=== PATIENT | female | born 1960 | race Caucasian/White ===

== ENCOUNTER → 2017-09-20 09:32 | Outpatient (CLI) | payer OTHER, SELFPAY ==
--- NOTE | 2017-09-20 09:39 | XR_ITS ---
XR shoulder RT min 2V HISTORY: ITS.REASON: right shoulder pain ORDERING PHYSICIAN: Emanuel Wolfe MD PATIENT AGE: 56 years TECHNIQUE: Supraspinatus, Grashey, and axillary views are obtained FINDINGS: No fracture or dislocation. No lytic or blastic change. There is normal mineralization. The joint spaces are well-preserved. No significant degenerative/arthritic changes. No erosive changes evident. No significant subacromial stenosis IMPRESSION: Negative, no acute finding
== END ==
PROVIDERS: PCP Family Medicine; Visit Provider Orthopaedic Surgery
DX: M25.511 Pain in right shoulder (principal)
CPT/HCPCS: 73030

== ENCOUNTER 2018-02-25 15:01 | Outpatient (RCR) | payer OTHER, SELFPAY | END 2018-02-25 15:02 | disposition home or self-care (01) | LOC: PT 15:01 | PROVIDERS: Visit Provider Orthopaedic Surgery | DX: S93.402A Sprain of unspecified ligament of left ankle, initial encounter (principal); M85.662 Other cyst of bone, left lower leg | CPT/HCPCS: 97760 ==

== ENCOUNTER → 2018-02-26 10:42 | Outpatient (CLI) | payer OTHER, SELFPAY ==
--- NOTE | 2018-02-26 10:47 | XR_ITS ---
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 There is no soft tissue swelling laterally has improved. No acute fracture evident. IMPRESSION: Stable benign-appearing cystic lesion of the distal tibia
== END ==
PROVIDERS: PCP Family Medicine; Visit Provider Orthopaedic Surgery
DX: M85.662 Other cyst of bone, left lower leg (principal)
CPT/HCPCS: 73610

== ENCOUNTER → 2018-03-19 10:44 | Outpatient (CLI) | payer OTHER, SELFPAY ==
--- NOTE | 2018-03-19 10:46 | MR_ITS ---
MR shoulder RT wo con HISTORY: Right shoulder pain with clicking ITS.REASON: evaluate right rotator cuff tear ORDERING PHYSICIAN: Emanuel Wolfe MD PATIENT AGE: 57 years Comparison: 09/20/2017 TECHNIQUE: Standard multiplanar multiecho sequences are performed without contrast. FINDINGS: There are hypertrophic changes of the acromioclavicular joint. There is some hypertrophy along the undersurface of the acromium as well with mild subacromial stenosis at 5 mm. There is thickening of the supraspinatus and infraspinatus tendons consistent with tendinopathy/tendinosis. No definite tendon tear apparentk. The subscapularis and teres minor tendons appear intact. No obvious labral tear. No fracture or dislocation. Bicipital tendon is in place. There is a small amount fluid within the bicipital tendon sheath. IMPRESSION: 1. No evidence of rotator cuff tear. 2. 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 3. Fluid in the bicipital tendon sheath suggesting tendinitis
== END ==
PROVIDERS: PCP Family Medicine; Visit Provider Orthopaedic Surgery
DX: M25.511 Pain in right shoulder (principal); M67.911 Unspecified disorder of synovium and tendon, right shoulder; M75.21 Bicipital tendinitis, right shoulder; S49.90XA Unspecified injury of shoulder and upper arm, unspecified arm, initial encounter
CPT/HCPCS: 73221

== ENCOUNTER 2019-10-27 10:07 | Outpatient (RCR) | payer OTHER, SELFPAY | END 2019-10-27 10:10 | disposition home or self-care (01) | LOC: PT 10:07 | PROVIDERS: PCP Family Medicine | DX: S32.04 Fracture of fourth lumbar vertebra (principal) | CPT/HCPCS: 97163 ==

== ENCOUNTER 2020-04-30 16:30 | Outpatient (RCR) | payer OTHER, SELFPAY | END 2020-04-30 16:35 | disposition home or self-care (01) | LOC: PT 16:30 | DX: M54.5 Low back pain; M43.26 Fusion of spine, lumbar region | CPT/HCPCS: 97010; 97014; 97033; 97035; 97110; 97140; 97163; 97164; 97530; G0283 ==

== ENCOUNTER 2020-06-07 09:30 | Outpatient (RCR) | payer OTHER, SELFPAY | END 2020-12-22 14:44 | disposition home or self-care (01) | LOC: PT 09:30 | PROVIDERS: PCP Family Medicine; Visit Provider Orthopaedic Surgery | DX: M25.562 Pain in left knee; M17.12 Unilateral primary osteoarthritis, left knee | CPT/HCPCS: 97010; 97014; 97033; 97035; 97110; 97163; 97530; G0283 ==

== ENCOUNTER 2023-03-21 14:00 | Outpatient (RCR) | payer MEDICARE, OTHER, SELFPAY | END 2023-03-21 14:05 | disposition home or self-care (01) | LOC: OT 14:00 | PROVIDERS: PCP Family Medicine; Visit Provider Orthopaedic Surgery | DX: M75.21 Bicipital tendinitis, right shoulder (principal) | CPT/HCPCS: 97010; 97014; 97016; 97035; 97140; 97165; 97530; G0283 ==

== ENCOUNTER 2024-10-09 20:10 | Emergency (ER) | payer MEDICARE, SELFPAY ==
[2024-10-09 20:17] VITALS: BP 145/78; PULSE 102; RESP 16; TEMP 36.8; O2SAT 98; BMI 37.9
--- NOTE | 2024-10-09 20:33 | CT_ITS ---
PROCEDURE INFORMATION: Exam: CT Right Lower Extremity Without Contrast, Knee Exam date and time: 10/09/2024 8:41 PM Age: 63 years old Clinical indication: Injury or trauma; Other: Twisted knee TECHNIQUE: Imaging protocol: CT of the right lower extremity without contrast was performed. Exam focused on the knee. Radiation optimization: All CT scans at this facility use at least one of these dose optimization techniques: automated exposure control; mA and/or kV adjustment per patient size (includes targeted exams where dose is matched to clinical indication); or iterative reconstruction. COMPARISON: No relevant prior studies available. FINDINGS: Bones/joints: No evidence of fat density within the joint space. Lucent lesion in the proximal tibia with associated central calcifications. Three compartment joint osteophyte formation. Joint space calcium density at lateral compartment is probably a small osteochondral body Soft tissues: Nor large joint effusion. IMPRESSION: 1. Large joint effusion 2. No visible acute fracture 3. Three compartment osteoarthritis 4. Consider MRI for further characterization.
--- NOTE | 2024-10-09 20:33 | ED_ITS ---
<Statement entered by George Yates MD - 10/10/24 00:19> I was consulted by the VIVEK, and we discussed the complexity of problems being addressed. I approved the treatment and management plan for this patient's care in the emergency department, thus performing a substantial portion of the medical decision making. ABIs within normal limits, low concern for tibiofemoral dislocation or vascular injury. I reviewed the CT which demonstrates no fracture or dislocation. Possible ligamentous injury, she will follow-up outpatient and in a knee immobilizer. She is instructed to range her knee throughout the day, wear the knee immobilizer only when she is attempting to ambulate. George Yates MD Discharge Plan Disposition Patient Disposition: Home, Self-Care Condition: Fair Referrals Follow up/Referrals: Shania Rodriguez APRN [Primary Care Provider] - See instructions Sanya Aponte DO [Staff Physician] - See instructions Activity Restrictions/Add. Instructions Additional Instructions/Restrictions: Please wear your knee immobilizer and crutches for comfort. I recommend taking an aspirin a day until you see orthopedics. I have referred you to orthopedics please call in the morning to make your appointment. If you have any new continued or worsening signs or symptoms follow-up with your PCP return to the ER as needed. Clinical Impressions Clinical Impression: Effusion of knee joint right Injury of knee, right Qualifiers: Encounter type: initial encounter Qualified Code(s): S89.91XA - Unspecified injury of right lower leg, initial encounter Print Language Print Language: [place] Discharge ED Provider: George Yates General Adult HPI General Chief complaint: Extremity Injury, Lower Stated complaint: Right knee pain Time Seen by Provider: 10/09/24 20:17 Mode of Arrival: Ambulatory Source of Information: Patient Description of Symptoms (Recalled from ER Triage Doc. by RN): Patient was standing folding laundry when right knee gave out 1-2 hours ago. Patient difficulty amublating. History of Present Illness HPI narrative: Patient presents for right knee injury. Patient was sitting folding laundry and attempted to stand up and her knee buckled. She had a sharp pain and felt something pop . She has had difficulty bearing weight and bending her knee. She denies any numbness tingling loss of motor or sensory however. She did not fall or suffer any injury Related Data Allergies Allergy/AdvReac Type Severity Reaction Status Date / Time No Known Allergies Allergy Verified 03/29/20 13:05 [facility] Disclaimer: The information contained in this section may have been updated after the patient was seen, as this information can be updated by other users. Social History (System 03/29/20 @ 13:05 by Natalie Stroud) Smoking Status: Never smoker alcohol intake: never current occupational status: retired Travel in the last 8 weeks?: None Other Medical History Have you received the Flu Vaccine for this season: No ROS Obtained: Yes Systems reviewed as appropriate & no additional complaints except as documented Physical Exam General General appearance: alert and in no apparent distress Respiratory Respiratory exam: Present normal lung sounds bilaterally Cardiovascular Cardiovascular exam: Present regular rate and +S2 Neurological Exam Neurological exam: Present alert and oriented X3 Medical Decision Making Medical Records Screening: Per USPSTF and CDC recommendations, given the prevalence of disease in our region, it is our hospital?s policy to screen for HIV and viral Hepatitis for all patients aged 18 and over and those with ongoing risk factors. Lucien Inquiry Pt receiving controlled substance: No Vital Signs: 10/09/24 20:17 10/09/24 20:51 Temperature 98.2 F Temperature Source Tympanic Pulse Rate [Dorsalis Pedis] 82 Pulse Rate [Right] 102 H Respiratory Rate 16 Blood Pressure [Right Arm] 145/78 H Blood Pressure Mean [Right Arm] 100 Blood Pressure Source [Right Arm] Automatic Cuff Blood Pressure Position [Right Arm] Sitting 02 Sat by Pulse Oximetry 98 Orders (Tests/Meds): ED MEDICATIONS Discontinued Medications Generic Name Dose Route Start Last Admin Trade Name Freq PRN Reason Stop Dose Admin Acetaminophen 1,000 mg 10/09/24 20:33 10/09/24 20:49 Acetaminophen 500mg Tab PO 10/09/24 20:34 1,000 mg ONCE ONE Administration Oxycodone HCl 5 mg 10/09/24 20:33 10/09/24 20:49 Oxycodone 5mg Immediate Release Tablet PO 10/09/24 20:34 5 mg ONCE ONE Administration ORDERS Category Date Time Status CT knee RT wo con Stat Cat Scan 10/09/24 20:33 Completed Medical Decision Narrative: In summary patient is a 63-year-old female who presents to the emergency department for evaluation of right knee injury. Patient is normotensive the blood pressure 145/78 pulse 102 sinus tachycardia bedside monitor breathing 16 times a minute satting at 98% on room air upon arrival, afebrile at 90.2. Physical exam is remarkable for tenderness to palpation all about the right knee but there is no palpable bony deformity. Range of motion testing not attempted due to the patient's discomfort. She is neurovascular tact distally with good PT DP.. Differential diagnosis includes subluxation versus fracture versus ligament or cartilage injury etc. Initial workup will be conducted with CT scan Noncon of the right knee. Initial interventions include Tylenol and oxycodone patient's already taken ibuprofen. Initial workup reviewed by me and patient has a large joint effusion along with tricompartment osteoarthritis but no other acute abnormality.. Upon repeat evaluation patient still having difficulty bearing weight. Given this I will place the patient in a knee immobilizer tell her to take an aspirin a day give her a pair of crutches and refer her to orthopedics. Critical Care Critical Care Time Critical Care Time: No
[2024-10-09] MEDS: OXYCODONE 5MG IMMEDIATE RELEASE TABLET 5 MG PO (20:49)
[2024-10-09] MEDS: ACETAMINOPHEN 500MG TAB 1000 MG PO (20:49)
[2024-10-09 20:51] VITALS: PULSE 82
[2024-10-09 21:44] VITALS: BP 138/74; PULSE 68; RESP 22; TEMP 36.6; O2SAT 98
== END 2024-10-09 21:46 | disposition home or self-care (01) ==
PROVIDERS: Emergency Provider Emergency Medicine; PCP Nurse Practitioner
DX: S89.91XA Unspecified injury of right lower leg, initial encounter (principal); M25.461 Effusion, right knee; X58.XXXA Exposure to other specified factors, initial encounter
CPT/HCPCS: 73700; 99284

== ENCOUNTER 2024-10-15 10:17 | Outpatient (CLI) | payer MEDICARE, SELFPAY ==
--- NOTE | 2024-10-15 10:20 | XR_ITS ---
FINAL REPORT CLINICAL HISTORY: Right knee pain FINDINGS: AP, lateral and oblique views of the right knee were obtained. There is no prior exam for comparison. There is no acute fracture or dislocation. There is moderate degenerative joint disease most pronounced in the medial compartment. A sclerotic lesion in the proximal tibia is likely an enchondroma. The soft tissues are normal. There is no joint effusion. IMPRESSION: Degenerative joint disease without acute osseous abnormality of the right knee. Reviewed, Interpreted and Dictated by Milana Dixon MD Transcribed by Mayda Stafford Authenticated and [facility]
== END 2024-10-15 23:59 | disposition home or self-care (01) ==
LOC: RAD 10:17
PROVIDERS: PCP Nurse Practitioner; Visit Provider Physician Assistant
DX: M25.461 Effusion, right knee (principal); M25.561 Pain in right knee
CPT/HCPCS: 73562